=== PATIENT | female | born 1980 | race Caucasian/White ===

== ENCOUNTER 2020-07-02 06:14 | Day surgery (SDC) | payer OTHER ==
--- NOTE | 2020-07-01 17:00 | NUR ---
COPY OF PREOP LABS AND TESTING FAXED TO MD AND COPIES TO [facility] FOR REVIEW.
[~2020-07-02] VITALS: Ht 154.9 cm; Wt 63.5 kg
[2020-07-02 08:17] VITALS: BP 126/74
[2020-07-02 17:01] VITALS: BP 104/67
== END 2020-07-02 14:20 | disposition home or self-care (01) ==
LOC: DS 06:14 → LB 13:54 → DS 14:20
PROVIDERS: ATTEND Surgery
DX: K64.8 Other hemorrhoids (principal); K64.4 Residual hemorrhoidal skin tags; Z90.49 Acquired absence of other specified parts of digestive tract; Z98.891 History of uterine scar from previous surgery
CPT/HCPCS: J1170; J2001; J3010; J3490